=== PATIENT | male | born 1940 | race African-American/Black ===

== ENCOUNTER 2016-07-07 09:50 | Outpatient (CLI) | payer MEDICARE ==
[2016-07-07 13:04] LABS: #Basophils 0.1 thou/uL (0.0-0.2); #Eosinphils 0.1 thou/uL (0.0-0.7); #Lymphocytes 1.8 thou/uL (1.20-3.40); #Monocytes 0.5 thou/uL (0.11-0.59); #Neutrophils 2.6 thou/uL (1.40-6.50); %Basophils 1.1 % (0.0-1.0); %Eosinophils 2.8 % (0.0-10.0); %Lymphocytes 35.5 % (21.0-51.0); %Monocytes 9.8 % (0.0-10.0); %Neutrophils 50.8 % (42.0-75.0); Hemoglobin 11.2 g/dL (14.0-18.0); Mean Corpuscular HGB CONC 30.8 g/dL (32.0-36.0); Mean Corpuscular Hemoglobin 28.8 pg (27.0-31.0); Mean Corpuscular Volume 93.5 fl (80.0-94.0); Mean Platelet Volume 5.8 fL (7.4-10.4); Platelet Count 230 thou/uL (130-400); RBC Distribution Width 13.5 % (11.5-14.5); Red Blood Cell (RBC) Count 3.88 mill/uL (4.70-6.10); White Blood Cell (WBC) Count 5.1 thou/uL (4.8-10.8)
[2016-07-07 13:21] LABS: Hemoglobin A1c 5.8 % (4.0-6.0)
[2016-07-07 13:25] LABS: Bilirubin Negative (Negative); Blood, Urine Negative (Negative); Clarity Slightly Cloudy (Clear); Glucose, Urine (Dipstick) Negative (Negative); Leukocyte Large (Negative); Nitrite Negative (Negative); Protein, Urine (Dipstick) Negative (Neg-Trace); Specific Gravity, Urine 1.015 (1.005-1.030); Urobilinogen 0.2 mg/dL (0.2-1.0); pH, Urine 5.5 (5.0-9.0)
[2016-07-07 13:29] LABS: ALT (SGPT) 62 U/L (0-55); AST (SGOT) 95 U/L (5-34); Albumin 4.2 g/dL (3.4-4.8); Alkaline Phosphatase 34 U/L (40-150); Anion Gap 17 mmol/L (10-20); BUN (Urea Nitrogen) 30 mg/dL (8.4-25.7); Bilirubin, Total 0.6 mg/dL (0.2-1.2); Calc. Creatinine Clearance 0 mL/min (70-130); Calcium 8.5 mg/dL (7.8-10.44); Carbon Dioxide 18 mmol/L (23-31); Cardiac Risk 3.5 (Less than 4.5); Chloride 114 mmol/L (98-107); Cholesterol 144 mg/dL (< 200 Desired); Estimated GFR-MDRD 59; Globulin 3.5 g/dL (2.4-3.5); Glucose 98 mg/dL (83-110); HDL Cholesterol 41 mg/dL (>60 Neg Risk); LDL Cholesterol, Calculated 73 mg/dL; Protein, Total 7.7 g/dL (5.8-8.1); Sodium 144 mmol/L (136-145); Triglycerides 150 mg/dL (Less than 150)
[2016-07-07 13:48] LABS: Bacteria/HPF 1+ HPF (None Seen); RBC/HPF 0-3 HPF (0-3); Squamous Epithelial 0-3 HPF (0-3)
[2016-07-07 18:13] LABS: Creatinine, Urine 124.99 mg/dL (63-166); Microalbumin Urine 4.5 mg/dL (0.5-50.0)
== END 2016-07-07 09:51 | disposition home or self-care (01) ==
LOC: NAVSJIPCSP 09:50
PROVIDERS: ATTEND Internal Medicine
DX: Z12.5 Encounter for screening for malignant neoplasm of prostate (principal); E11.29 Type 2 diabetes mellitus with other diabetic kidney complication; I11.9 Hypertensive heart disease without heart failure; E78.5 Hyperlipidemia, unspecified; Z79.899 Other long term (current) drug therapy
CPT/HCPCS: 36415; 80053; 80061; 81003; 81015; 82043; 83036; 85025; G0103

== ENCOUNTER 2016-08-03 09:16 | Outpatient (CLI) | payer MEDICARE | END 2016-08-03 09:17 | disposition home or self-care (01) | LOC: NAV DTY OP 09:16 | PROVIDERS: ATTEND Internal Medicine | DX: E11.29 Type 2 diabetes mellitus with other diabetic kidney complication (principal) | CPT/HCPCS: 97802 ==

== ENCOUNTER 2016-08-31 11:00 | Outpatient (CLI) | payer MEDICARE ==
--- NOTE | 2016-08-31 14:27 | RAD ---
RIGHT SHOULDER 3 VIEWS: Date: 08/31/16 HISTORY: Shoulder pain. COMPARISON: None. FINDINGS: There is a lucency through the base of the coracoid extending to the superior glenoid. There is mild widening of acromioclavicular distance of 5.0 mm with mild elevation of distal clavicle. Visualized ribs appear unremarkable. IMPRESSION: 1. Concern for fracture of the base of the coracoid process extending into the glenoid. CT may be b eneficial. 2. Mild elevation of distal clavicle with widened acromioclavicular joint space just over 6.0 mm. T his could represent a coexisting sprain. Correlation for focal tenderness of the coracoid and distal clavicle is recommended. POS: [facility]
== END 2016-08-31 11:01 | disposition home or self-care (01) ==
LOC: NAV RAD 11:00
PROVIDERS: ATTEND Internal Medicine
DX: M25.511 Pain in right shoulder (principal)

== ENCOUNTER 2016-09-02 08:28 | Outpatient (CLI) | payer MEDICARE ==
--- NOTE | 2016-09-02 12:40 | CT ---
NONCONTRAST CT OF THE RIGHT SHOULDER: Indication: Concern for a nondisplaced coracoid process fracture. Comparison: Prior radiograph dated 08-31-16. FINDINGS: There is a nondisplaced fracture involving the right distal clavicle. There is moderate AC joint ost eoarthrosis. Small calcification is seen near the origin of the coracobrachialis, the pec major whic h is likely related to enthesopathic change. The coracoid process is intact. The glenoid is intact. There is some calcific density seen within the region of the supraspinatus and anterior infraspinatu s which may be related to calcified tendinosis. Visualized right lung is clear. IMPRESSION: 1. Nondisplaced right distal clavicle fracture. 2. Moderate AC joint osteoarthrosis. 3. Enthesopathic change off the right pec minor origin of the coracoid. No displaced coracoid or gle noid neck fracture is demonstrated. POS: [facility]
== END 2016-09-02 08:29 | disposition home or self-care (01) ==
LOC: NAV CT 08:28
PROVIDERS: ATTEND Internal Medicine
DX: S42.134A Nondisplaced fracture of coracoid process, right shoulder, initial encounter for closed fracture (principal); M19.011 Primary osteoarthritis, right shoulder; S42.034A Nondisplaced fracture of lateral end of right clavicle, initial encounter for closed fracture

== ENCOUNTER 2016-10-07 08:31 | Outpatient (CLI) | payer MEDICARE ==
[2016-10-07 13:03] LABS: ALT (SGPT) 91 U/L (8-55); AST (SGOT) 111 U/L (5-34); Albumin 3.5 g/dL (3.4-4.8); Alkaline Phosphatase 33 U/L (40-150); Anion Gap 18 mmol/L (10-20); BUN (Urea Nitrogen) 68 mg/dL (8.4-25.7); Bilirubin, Total 0.3 mg/dL (0.2-1.2); Calc. Creatinine Clearance 0 mL/min (70-130); Calcium 8.3 mg/dL (7.8-10.44); Carbon Dioxide 17 mmol/L (23-31); Chloride 107 mmol/L (98-107); Estimated GFR-MDRD 25; Globulin 3.3 g/dL (2.4-3.5); Glucose 118 mg/dL (83-110); Potassium 5.1 mmol/L (3.5-5.1); Protein, Total 6.8 g/dL (5.8-8.1); Sodium 137 mmol/L (136-145)
[2016-10-07 17:57] LABS: HBCM Index 0.08 S/CO (0-0.79); HBSAg Index 0.22 S/CO (0-0.99); Hep A IgM AB Non-Reactive (NonReactive); Hep A IgM S/CO 0.11 S/CO (0-0.79); Hep B Surf Ag Non-Reactive S/CO (NonReactive); Hep C IgG Ab Non-Reactive (NonReactive); Hepatitis B Core IGM Abs Non-Reactive (NonReactive)
== END 2016-10-07 08:32 | disposition home or self-care (01) ==
LOC: NAVSJIPCSP 08:31
PROVIDERS: ATTEND Internal Medicine
DX: R74.0 Nonspecific elevation of levels of transaminase and lactic acid dehydrogenase [LDH] (principal); N28.9 Disorder of kidney and ureter, unspecified
CPT/HCPCS: 36415; 80053; 80074

== ENCOUNTER 2016-10-21 11:26 | Outpatient (CLI) | payer MEDICARE ==
[2016-10-21 13:54] LABS: Anion Gap 15 mmol/L (10-20); BUN (Urea Nitrogen) 26 mg/dL (8.4-25.7); Calc. Creatinine Clearance 0 mL/min (70-130); Calcium 8.1 mg/dL (7.8-10.44); Carbon Dioxide 22 mmol/L (23-31); Chloride 112 mmol/L (98-107); Estimated GFR-MDRD 53; Glucose 122 mg/dL (83-110); Potassium 4.8 mmol/L (3.5-5.1); Sodium 144 mmol/L (136-145)
== END 2016-10-21 11:27 | disposition home or self-care (01) ==
LOC: NAVSJIPCSP 11:26
PROVIDERS: ATTEND Internal Medicine
DX: N17.9 Acute kidney failure, unspecified (principal)
CPT/HCPCS: 36415; 80048

== ENCOUNTER 2016-11-18 10:07 | Outpatient (CLI) | payer MEDICARE ==
[2016-11-18 12:26] LABS: Hemoglobin A1c 5.9 % (4.0-6.0)
[2016-11-18 12:46] LABS: Anion Gap 16 mmol/L (10-20); BUN (Urea Nitrogen) 18 mg/dL (8.4-25.7); Calc. Creatinine Clearance 0 mL/min (70-130); Calcium 8.2 mg/dL (7.8-10.44); Carbon Dioxide 19 mmol/L (23-31); Cardiac Risk 5.2 (Less than 4.5); Chloride 118 mmol/L (98-107); Cholesterol 150 mg/dl (< 200 Desired); Estimated GFR-MDRD 68; Glucose 87 mg/dL (83-110); HDL Cholesterol 29 mg/dL (>60 Neg Risk); LDL Cholesterol, Calculated 104 mg/dL; Potassium 4.5 mmol/L (3.5-5.1); Sodium 148 mmol/L (136-145); Triglycerides 84 mg/dL (Less than 150)
== END 2016-11-18 10:08 ==
LOC: NAVSJIPCSP 10:07
PROVIDERS: ATTEND Internal Medicine
DX: E78.5 Hyperlipidemia, unspecified (principal); I11.9 Hypertensive heart disease without heart failure; N18.2 Chronic kidney disease, stage 2 (mild); E11.29 Type 2 diabetes mellitus with other diabetic kidney complication; Z79.899 Other long term (current) drug therapy
CPT/HCPCS: 36415; 80048; 80061; 83036

== ENCOUNTER 2016-12-16 11:03 | Outpatient (CLI) | payer MEDICARE ==
[2016-12-16 15:04] LABS: Anion Gap 14 mmol/L (10-20); BUN (Urea Nitrogen) 19 mg/dL (8.4-25.7); Calc. Creatinine Clearance 0 mL/min (70-130); Calcium 8.5 mg/dL (7.8-10.44); Carbon Dioxide 21 mmol/L (23-31); Chloride 110 mmol/L (98-107); Estimated GFR-MDRD 75; Glucose 102 mg/dL (83-110); Potassium 4.4 mmol/L (3.5-5.1); Sodium 141 mmol/L (136-145)
== END 2016-12-16 11:04 | disposition home or self-care (01) ==
LOC: NAVSJIPCSP 11:03
PROVIDERS: ATTEND Internal Medicine
DX: N18.2 Chronic kidney disease, stage 2 (mild) (principal)
CPT/HCPCS: 36415; 80048

== ENCOUNTER 2017-03-23 10:01 | Outpatient (CLI) | payer MEDICARE ==
--- NOTE | 2017-03-26 15:37 | RAD ---
LEFT SHOULDER 3 VIEWS: HISTORY: Acute pain and fall, acute pain in the left shoulder. FINDINGS/IMPRESSION: There are degenerative changes in the acromioclavicular joint. No acute fracture or dislocation is i dentified. POS: OFF
== END 2017-03-23 10:02 | disposition home or self-care (01) ==
LOC: NAV RAD 10:01
PROVIDERS: ATTEND Internal Medicine
DX: M25.512 Pain in left shoulder (principal); M19.019 Primary osteoarthritis, unspecified shoulder

== ENCOUNTER 2022-11-15 18:24 | Emergency (ER) | payer MEDICARE ==
[2022-11-15] MEDS ORDERED: Furosemide 20 MG/2 ML VIAL ONE (19:01)
[2022-11-15 19:09] LABS: ALT (SGPT) 19 U/L (8-55); AST (SGOT) 41 U/L (5-34); Albumin 3.7 g/dL (3.4-4.8); Alkaline Phosphatase 45 U/L (40-110); Anion Gap 17 mmol/L (10-20); BUN (Urea Nitrogen) 27 mg/dL (8.4-25.7); Bilirubin, Total 0.5 mg/dL (0.2-1.2); Calc. Creatinine Clearance 0 mL/min (70-130); Calcium 8.2 mg/dL (7.8-10.44); Carbon Dioxide 18 mmol/L (23-31); Chloride 107 mmol/L (98-107); Estimated GFR 33; Globulin 3.1 g/dL (2.4-3.5); Glucose 218 mg/dL (83-110); Magnesium 1.7 mg/dL (1.6-2.6); Potassium 3.6 mmol/L (3.5-5.1); Protein, Total 6.8 g/dL (5.8-8.1); Sodium 138 mmol/L (136-145)
[2022-11-15 19:17] LABS: #Lymphocytes 1.9 thou/uL (1.20-3.40); #Monocytes 0.4 thou/uL (0.11-0.59); #Neutrophils 3.6 thou/uL (1.40-6.50); %Basophils 0.7 % (0.0-1.0); %Eosinophils 0.6 % (0.0-10.0); %Lymphocytes 32.3 % (21.0-51.0); %Monocytes 7.2 % (0.0-10.0); %Neutrophils 59.3 % (42.0-75.0); Hemoglobin 11.2 g/dL (14.0-18.0); Mean Corpuscular HGB CONC 30.3 g/dL (32.0-36.0); Mean Corpuscular Hemoglobin 27.8 pg (27.0-31.0); Mean Corpuscular Volume 91.8 fl (78.0-98.0); Mean Platelet Volume 7.6 fL (7.4-10.4); Platelet Count 181 10x3/uL (130-400); RBC Distribution Width 13.6 % (11.5-14.5); Red Blood Cell (RBC) Count 4.02 mill/uL (4.70-6.10)
== END 2022-11-15 20:13 | disposition home or self-care (01) ==
LOC: NAV ERS 18:24
DX: R60.0 Localized edema (principal); R01.1 Cardiac murmur, unspecified; E78.00 Pure hypercholesterolemia, unspecified; I10 Essential (primary) hypertension; E11.9 Type 2 diabetes mellitus without complications; Z91.148 Patient's other noncompliance with medication regimen for other reason; Z79.899 Other long term (current) drug therapy
CPT/HCPCS: 71045; 80053; 83735; 83880; 84484; 85025; 93005; 96374; J1940

== ENCOUNTER 2023-04-02 17:19 | Emergency (ER) | payer MEDICARE ==
[2023-04-02 18:18] LABS: #Lymphocytes 1.5 thou/uL (1.20-3.40); #Monocytes 0.3 thou/uL (0.11-0.59); #Neutrophils 2.6 thou/uL (1.40-6.50); %Basophils 0.6 % (0.0-1.0); %Eosinophils 0.1 % (0.0-10.0); %Lymphocytes 32.9 % (21.0-51.0); %Monocytes 7.3 % (0.0-10.0); %Neutrophils 59.1 % (42.0-75.0); Hematocrit 44.5 % (42.0-52.0); Hemoglobin 13.9 g/dL (14.0-18.0); Mean Corpuscular HGB CONC 31.3 g/dL (32.0-36.0); Mean Corpuscular Hemoglobin 28.6 pg (27.0-31.0); Mean Corpuscular Volume 91.2 fl (78.0-98.0); Mean Platelet Volume 9.3 fL (7.4-10.4); Platelet Count 184 10x3/uL (130-400); RBC Distribution Width 12.9 % (11.5-14.5); Red Blood Cell (RBC) Count 4.88 mill/uL (4.70-6.10); White Blood Cell (WBC) Count 4.4 10x3/uL (4.8-10.8)
[2023-04-02 18:30] LABS: Acetaminophen Less than 10 mcg/mL (10.0-30.0); Alcohol Less than 10.0 mg/dL (Less than 10); Salicylate Less than 8.0 mg/dL (15.0-30.0)
[2023-04-02 18:33] LABS: Troponin I 0.044 ng/mL (< 0.028)
[2023-04-02 18:40] LABS: ALT (SGPT) 23 U/L (8-55); AST (SGOT) 42 U/L (5-34); Alkaline Phosphatase 38 U/L (40-110); Anion Gap 18 mmol/L (10-20); BUN (Urea Nitrogen) 35 mg/dL (8.4-25.7); Bilirubin, Total 1.1 mg/dL (0.2-1.2); Calc. Creatinine Clearance 0 mL/min (70-130); Calcium 9.1 mg/dL (7.8-10.44); Carbon Dioxide 21 mmol/L (23-31); Chloride 105 mmol/L (98-107); Estimated GFR 30; Globulin 4.3 g/dL (2.4-3.5); Glucose 135 mg/dL (83-110); Potassium 5.3 mmol/L (3.5-5.1); Protein, Total 8.3 g/dL (5.8-8.1); Sodium 139 mmol/L (136-145)
[2023-04-02] MEDS ORDERED: Aspirin Chewable 81 MG TAB ONE (18:54)
[2023-04-02 19:23] LABS: Bilirubin Negative (Negative); Blood, Urine Trace (Negative); Glucose, Urine (Dipstick) Negative (Negative); Ketone, Urine Trace mg/dL (Negative); Leukocyte Small (Negative); Nitrite Negative (Negative); Protein, Urine (Dipstick) > or equal to 300 mg/dL (Neg-Trace); Urobilinogen 0.2 mg/dL (Less than 2); pH, Urine 5.5 (5.0-9.0)
[2023-04-02] MEDS ORDERED: Sodium Chloride 0.9% 500 ML ONE (19:23)
[2023-04-02 19:30] LABS: Clarity Hazy (Clear)
[2023-04-02 19:32] LABS: Bacteria/HPF Rare-Few HPF (None Seen); CAUTI Indications for Culture Alt mental st,lethar; RBC/HPF 0-3 HPF (0-3); Squamous Epithelial 0-3 HPF (0-3); Urine Culture Reflex No No
[2023-04-02 19:33] LABS: Amphetamine Not Detected (NotDetected); Barbiturates Screen Not Detected (NotDetected); Benzodiazepine Screen Not Detected (NotDetected); Cocaine Metabolite Screen Not Detected (NotDetected); Methadone Not Detected (NotDetected); Methamphetamine Not Detected (NotDetected); Opiate Screen Not Detected (NotDetected); Oxycodone Screen Not Detected (NotDetected); Phencyclidine (PCP) Not Detected (NotDetected); THC/Cannabinoid Screen Not Detected (NotDetected); Tricyclic Screen Not Detected (NotDetected)
== END 2023-04-02 20:45 | disposition short-term general hospital (02) ==
LOC: NAV ERS 17:19
DX: R41.82 Altered mental status, unspecified (principal); R00.1 Bradycardia, unspecified; J34.89 Other specified disorders of nose and nasal sinuses; E86.0 Dehydration; E78.00 Pure hypercholesterolemia, unspecified; I10 Essential (primary) hypertension; E11.9 Type 2 diabetes mellitus without complications
CPT/HCPCS: 51701; 70450; 71045; 80053; 80306; 80307; 81001; 83605; 84443; 84484; 85025; 87040; 87086; 93005; 96360; J7030